=== PATIENT | female | born 1990 | race Caucasian/White ===

== ENCOUNTER 2019-09-14 01:15 | Emergency (ER) | payer MEDICAID ==
[~2019-09-14] VITALS: Ht 160 cm; Wt 70.8 kg
[2019-09-14 01:26] VITALS: BP 123/75
--- NOTE | 2019-09-14 01:32 | NUR ---
PT TRIAGED AND SENT BACK TO LOBBY.
--- NOTE | 2019-09-14 02:54 | NUR ---
PT AMBULATED TO BED 05 WITH STEADY GAIT.
[2019-09-14] MEDS ORDERED: NACL 0.9% 1,000 ML IV ONE (03:25)
[2019-09-14] MEDS ORDERED: KETOROLAC 30 MG/ML VIAL IVP ONE (03:25)
--- NOTE | 2019-09-14 03:30 | NUR ---
29 YEAR OLD FEMALE COMPLAINS OF HEADACHE AND BODY ACHE X 1 WEEK PROGRESSIVELY WORSE. PT STATES SHE ALSO HAS DIARRHEA. PT DENIES N/V OR ABDOMINAL PAIN. PT AOX4, BREATHING EVEN AND UNLABORED, SKIN WARM AND DRY. BED IN LOWEST POSITION,LOCKED, BED RAIL UP1. PMH - DENIES ALLERGIES - NKA
[2019-09-14 03:40] LABS: BASOPHILS % (AUTO) 0.3 % (0.0-2.0); EOSINOPHILS # (AUTO) 0.1 K/uL (0-0.4); EOSINOPHILS % (AUTO) 0.8 % (0.0-4.0); HEMATOCRIT 38.5 % (36-48); HEMOGLOBIN 12.2 g/dL (12.0-16.0); LYMPHOCYTES # (AUTO) 1.9 K/uL (2.5-16.5); LYMPHOCYTES % (AUTO) 19.4 % (20.5-51.1); MEAN CORPUSCULAR HEMOGLOBIN 25 pg (27-31); MEAN CORPUSCULAR HGB CONC 32 g/dL (33-37); MEAN CORPUSCULAR VOLUME 79.9 fL (80-94); MONOCYTES # (AUTO) 1.1 K/uL (0.8-1.0); MONOCYTES % (AUTO) 10.6 % (1.7-9.3); NEUTROPHILS # (AUTO) 6.9 K/uL (1.8-7.7); NEUTROPHILS % (AUTO) 68.9 % (42.2-75.2); PLATELET COUNT (AUTO) 231 K/uL (140-450); RED BLOOD CELL COUNT(AUTO) 4.82 MIL/uL (4.20-5.40); RED CELL DISTRIBUTION WIDTH 16.4 % (11.6-13.7)
[2019-09-14 04:09] LABS: ALBUMIN 3.8 g/dL (3.4-5.0); ANION GAP 14.9 (8-16); CARBON DIOXIDE 27.4 mmol/L (21-32); CREATININE 0.7 mg/dL (0.6-1.3); POTASSIUM 3.3 mmol/L (3.5-5.1); TOTAL BILIRUBIN 0.4 mg/dL (0.0-1.0)
[2019-09-14 04:54] VITALS: BP 110/62
--- NOTE | 2019-09-14 04:54 | NUR ---
Patient discharged with v/s stable. Written and verbal after care instructions about diarrhea given and explained. Patient alert, oriented and verbalized understanding of instructions. Ambulatory with steady gait. All questions addressed prior to discharge. ID band removed. Patient advised to follow up with PMD. Rx of motrin given. Patient educated on indication of medication including possible reaction and side effects. Opportunity to ask questions provided and answered.
== END 2019-09-14 04:54 | disposition home or self-care (01) ==
LOC: MED 01:15
DX: R19.7 Diarrhea, unspecified (principal); R53.83 Other fatigue; R53.1 Weakness; F17.200 Nicotine dependence, unspecified, uncomplicated
CPT/HCPCS: 36415; 71045; 80053; 85025; 96361; 96374; 99284; J1885; J7030; Q0092